=== PATIENT | female | born 1990 | race Caucasian/White ===

== ENCOUNTER 2022-07-15 21:04 | Emergency (ER) | payer OTHER, SELFPAY ==
[2022-07-15 21:25] VITALS: BP 146/74; PULSE 74; PULSE 80; RESP 18; TEMP 36.8; O2SAT 99; BMI 33.7
--- NOTE | 2022-07-15 21:37 | CRLHL7_ITS ---
For Patients: As a result of the Century Cures Act, medical imaging exams and procedure reports are released immediately into your electronic medical record. You may view this report before your referring provider. If you have questions, please contact your health care provider. INDICATION: Sledgehammer to lower tibia. TECHNIQUE: Right tibia and fibula, 2 views. COMPARISON: None. FINDINGS: No acute fracture identified. The knee and ankle appear normally aligned. There is mild soft tissue swelling in the anteromedial aspect of the distal calf. IMPRESSION: Mild soft tissue swelling in the distal calf. No fracture identified. Dictated by Angelika Hernandez MD @ 07/15/2022 10:18:48 PM (Electronically Signed)
[2022-07-15 22:06] VITALS: BP 124/70; PULSE 75; RESP 18; TEMP 37; O2SAT 99
[2022-07-15 22:46] VITALS: BP 124/70; PULSE 75; RESP 18; TEMP 37
--- NOTE | 2022-07-16 00:21 | ED.LOWEXIN ---
HPI - Extremity Injury (Lower) General Chief Complaint: Extremity Pain/Injury, Lower Stated Complaint: got hit by a sledgehammer - rght leg Time Seen by Provider: 07/15/22 21:26 History of Present Illness HPI Narrative: Right Rosales Injury/Pain pt. hit right rosales with 8lb sledgehammer. able to bear weight. 32-year-old young woman presenting to the emergency department complaint of right lower leg pain after striking a within 8 lb sledgehammer. She apparently was participating in a [employer] room busting a box up. Significant other saw how hard she swung it and reportedly said that otherwise what he sees would be less impressive. She has been able to walk but it is a burning throbbing pain. Has iced it. Related Data Home Medications Medication Instructions Recorded Confirmed No Known Home Medications 07/15/22 07/15/22 Allergies Allergy/AdvReac Type Severity Reaction Status Date / Time No Known Drug Allergies Allergy Verified 07/15/22 21:27 [facility] Medical History (Updated 07/15/22 @ 22:43 by Rene Menezes MD) No significant past medical history Surgical History (Updated 07/15/22 @ 22:05 by Carlos Nur RN) No significant past surgical history Social History Smoking Status: Never smoker Second hand tobacco smoke exposure: No How often do you have a drink containing alcohol: never How often do you have six or more drinks on one occasion: Never AUDIT-C Alcohol total score: 0 Non-prescribed substance use: denies use Exam Narrative: Exam Narrative: Pleasant. NAD. Has sandals on. Right foot without though. There is the medial right ankle tattoo. In the distal tibia there is mild swelling faint erythema and subtle point of bruising. Quite tender to direct palpation. Bony stressor on this area does not elicit more pain. Is breathing easily. Generally calm. Const: Vital Signs, click to edit/add: Vital Signs - 24 hr 07/15/22 21:25 07/15/22 21:25 07/15/22 22:06 Temperature 98.2 F 98.6 F Pulse Rate [Right Dorsalis Pedis] 74 Pulse Rate [Right Pulse Oximeter] 80 75 Respiratory Rate 18 18 Blood Pressure [Ri ght Upper Arm] 146/74 H 124/70 Pulse Oximetry 99 99 Oxygen Delivery Me thod Room Air Room Air 07/15/22 22:46 Temperature 98.6 F Pulse Rate [Right Dorsalis Pedis] Pulse Rate [Right Pulse Oximeter] 75 Respiratory Rate 18 Blood Pressure [Ri ght Upper Arm] 124/70 Pulse Oximetry Oxygen Delivery Me thod Documenting provider has reviewed patient's vital signs: yes Course Vital Signs Vital signs: Initial Vital Signs Temperature 98.2 F 07/15/22 21:25 Temperature Source Temporal Artery Scan 07/15/22 21:25 Pulse Rate 80 07/15/22 21:25 Respiratory Rate 18 07/15/22 21:25 Blood Pressure 146/74 H 07/15/22 21:25 Blood Pressure Mean 98 07/15/22 21:25 Blood Pressure Position Sitting 07/15/22 21:25 Pulse Oximetry 99 07/15/22 21:25 Oxygen Delivery Method Room Air 07/15/22 21:25 Vital Signs Temperature 98.2 F 07/15/22 21:25 Pulse Rate 80 07/15/22 21:25 Respiratory Rate 18 07/15/22 21:25 Blood Pressure 146/74 H 07/15/22 21:25 Pulse Oximetry 99 07/15/22 21:25 Oxygen Delivery Method Room Air 07/15/22 21:25 Temperature 98.6 F 07/15/22 22:46 Pulse Rate 75 07/15/22 22:46 Respiratory Rate 18 07/15/22 22:46 Blood Pressure 124/70 07/15/22 22:46 Pulse Oximetry 99 07/15/22 22:06 Oxygen Delivery Method Room Air 07/15/22 22:06 MDM - Extremity Injury (Lower) MDM Narrative Medical decision making narrative: I suspect more of hematoma/periosteal contusion. I discussed potentially waiting until tomorrow if still terrible or even the next day. Understandably since she is here and I can not absolutely say there is not a fracture she would like to proceed with imaging. X-ray was ordered. By my read there is soft tissue swelling but no bony abnormality. Dispensed Valdo wrap for comfort and icing. See patient discharge plan. Discharge Plan Discharge Clinical Impression: Contusion Patient Disposition: Home w/ Parent or Adult Condition: Stable Additional Instructions: There is not a lot a space for swelling to occur here and further, bone bruises hurt. I would keep icing 2-3 times daily over the next few days. If compression feels good, use it. Limit ambulation over the next couple of days. Elevate and ibuprofen for comfort. If simply not improved in a week to 10 days, consider follow-up for re-evaluation. Prescriptions: No Action No Known Home Medications Follow Up/Referrals: Peggy Brunson MD [Primary Care Provider] - Stand Alone Forms: [employer] Info Instructions
== END 2022-07-15 22:47 | disposition home or self-care (01) ==
PROVIDERS: Emergency Provider Family Medicine; PCP Family Medicine
DX: S80.11XA Contusion of right lower leg, initial encounter (principal); W27.8XXA Contact with other nonpowered hand tool, initial encounter
CPT/HCPCS: 73590; 99283

== ENCOUNTER 2024-07-30 18:35 | Emergency (ER) | payer OTHER, SELFPAY ==
--- OUTSIDE RECORDS SUMMARY | 2024-07-30 18:38 | XMS_ITS | Data Portability ---
Author Organization [place] [facility] [place] [facility] Address [address] [address] Care Team Providers Care Chaser Helper Name Role Phone CHIDI AGUDELO Primary Care Provider [phone] GLADYS DOMÍNGUEZ Referring Provider Assessment Encounter Date Assessment Date Assessment LastModified by Organization Details LastModified Time 12/07/2019 12/07/2019 Notes much bruxism with sleep. Motion remains very limited. Doing ex about 7 x/day (js 5x and td 2x) difficult to fit more in. PLAN: encourage hourly stretch NEXT visit. Assess response to scissors stretch. See in 2 weeks. [place] of [place]. [email or web address] Not available 12/07/2019 18:08:35 01/11/2020 01/11/2020 I reinforced the self-care strategies and encouraged compliance with those. Splint fit was reviewed and Adjustments were made to the splint to improve fit and occlusal comfort. I reviewed outcomes from the visits with PT, , . I recommended continued care with the physical therapist. Today 20 minutes were spent with the patient with greater than 50% of the visit spent in counseling and coordinating care. This included a review of the diagnosis, contributing factors, home self-management strategies and the limitations and expectations. .. Not available 01/11/2020 11:07:15 01/11/2020 01/11/2020 Overall improvements in Rom, little ex, but much more aware of self cares : doing TATU, B chew, not biting things off. Also using splint. PLAN: see DDS today. Follow up in 2-3 weeks or as DDS suggests. [email or web address] Not available 01/11/2020 10:32:37 02/07/2020 02/07/2020 I reinforced the self-care strategies and encouraged compliance with those. Splint fit was reviewed and No further adjustments were made to the splint to improve fit and occlusal comfort. I reviewed outcomes from the visits with PT, , . I recommended continued care with the physical therapist. Today 25 minutes were spent with the patient with greater than 50% of the visit spent in counseling and coordinating care. This included a review of the diagnosis, contributing factors, home self-management strategies and the limitations and expectations. .. Not available 02/07/2020 13:16:33 02/07/2020 02/07/2020 Improved IO. Bite feels off. PLAN: to DDS today. Will adjust PT /exercises pending occlusal check. [email or web address] Not available 02/07/2020 12:40:56 Plan of Treatment Reminders Order Date Submit Date Provider Last Modified By Organization Details Last Modified Time Details Appointments None record ed. Lab None record ed. Referral None record ed. Procedures None record ed. Surgeries None record ed. Imaging None record ed. Medication Orders None record ed. Patient TargetsNo targets recorded. Patient Instructions Encounter Date Encounter Id Patient Instructions Last Modified By Organization Details Last Modified Time 01/11/2020 [id number] 1. adjusted [place] FPS to contact with equal force on the posterior teeth bilaterally 2. follow up with PT in 2-3 weeks 3. 1/2 hr w/Dr. Porter in 2-3 weeks, if symptoms are stable and jaw AROM is normal put pt. on annual splint recalls. Not available 01/11/2020 11:08:45 02/07/2020 [id number] 1. checked [place] FPS: no adjustment needed. 2. checked bite with shimstock: posterior teeth contact with equal force bilaterally. Occlusion is normal today 3. follow up with PT as previously recommended to continue increasing jaw AROM to 40mm without pain routinely 4. 1/2 hr w/Dr. Porter in 1 year or earlier if pain flares, bite changes, or splint cracks. Not available 02/07/2020 13:19:25 Reason for Referral None Reported. Problems No Known Problems Procedures Surgical History Date Name Laterality Status Provider Name and Address Organization Details Recorded Time 02/07/20 25591: Therapeutic Exercise completed Rachael Panda, DARIEL [address] [facility] [address], [place], [address], [place] [facility] 02/07/2020 12:39:46 01/11/20 71970: Ultrasound (1:1) completed DARIEL Olvera [address], [place], [address], [place] [facility] 01/11/2020 10:31:36 01/11/20 39251: Therapeutic Exercise completed DARIEL Olvera [address], [place], [address], [place] [facility] 01/11/2020 10:30:28 12/07/19 [id number]: Ultrasound (1:1) completed DARIEL Olvera [address], [place], [address], [place] [facility] 12/07/2019 18:05:52 12/07/19 01483: Therapeutic Exercise completed DARIEL Olvera [address], [place], [address], [place] [facility] 12/07/2019 18:05:38 11/30/19 Oral appliance completed Yee Tamez [facility] 11/30/2019 17:07:11 11/28/19 96549: Ultrasound (1:1) completed DARIEL Olvera [address], [place], [address], [place] [facility] 11/28/2019 17:02:17 11/28/19 41407: Therapeutic Exercise completed DARIEL Olvera [address], [place], [address], [place] [facility] 11/28/2019 17:02:01 11/14/19 63987: Ultrasound (1:1) completed DARIEL Olvera [address], [place], [address] 11/14/2019 17:05:43 11/14/19 20 42103: Therapeutic Exercise completed Rachael Panda, PRASAD [address] [facility] [address], [place], [address], [facility] 11/14/2019 17:04:01 11/08/19 20 29348 PT Eval - Low Complexity completed Rachael Panda [facility] [address] [place] [address] [address], [place], [place], [address] [place] [address], [facility] 11/08/2019 15:10:18 11/08/19 20 25340: Self Care/Home Management Training completed Rachael Panda [facility] [address] [facility] [address], [place], [place], [address] [place] [address], [facility] 11/08/2019 16:10:24 11/08/19 51944: Neuromuscular Re-Education completed Rachael Panda [facility] [address] [place] [address] [address], [place], [address], [facility] 11/08/2019 16:10:19 extraction of wisdom tooth completed Elsa Arora [facility] 10/26/2019 15:07:40 Imaging Results None recorded. Procedure Notes None recorded. Medical Equipment None Reported. Allergies Allergen ID Allergen Name Allergen Category Reaction Reaction Severity Criticality Documentation Date Start Date Code Code System Note Provider Name and Address Organization Details Recorded Time 62235 nickel environme nt Not available Not available Not available 10/26/2019 [address]86 [address] [facility] 0 15:04:38 37845 acetamino phen / hydrocodo ne medicatio n Not available Not available Not available 10/26/2019 [address]73 [address] [facility] 0 15:04:44 Medications Name Sig Start Date Stop Date Status Note LastModified by Organization Details LastModified Time clonazepam 0.5 mg tablet Take 1 tablet as needed by oral route at bedtime . 01/10 completed Not Available Not Available Not Available methylprednis olone 4 mg tablets in a dose pack Take 1 dose pk by oral route as directvaleria d. 11/26 completed Not Available Not Available Not Available Vitals Date Recorded Body height Body mass index (BMI) Body weight Heart rate Body temperature Systolic blood pressure Diastolic blood pressure Provider Name and Address Organization Details Last Updated DateTime 0 170.18 cm 33.7 kg/m2 93178.3 6 g 66 /min 98.2 [degF] 131 mm[Hg] 83 mm[Hg] Yee Tamez [facility] 0 10:29:28 Date Recorded Body height Body mass index (BMI) Body weight Provider Name and Address Organization Details Last Updated DateTime 02/07/2020 170.18 cm 33.7 kg/m2 91629.36 g Elsa RODRIGUEZ [facility] 02/07/2020 12:27:51 Date Recorded Body temperature Heart rate Systolic blood pressure Diastolic blood pressure Provider Name and Address Organization Details Last Updated DateTime 02/07/2020 97.5 [degF] 58 /min 121 mm[Hg] 81 mm[Hg] Elsa Alonzo [facility] 02/07/2020 12:34:31 Social History Question Answer Notes LastModified by Organizat ion Details LastModified Time Tobacco Smoking Status [facility] 10/26/2019 15:05:59 Auto Related Injury? No Information not available 10/26/2019 What Is Your Level Of Caffeine Consumption? Moderate Information not available 10/26/2019 Currently No Information not available 10/26/2019 What Type Of Diet Are You Following? REGULAR Information not available 10/26/2019 Hobbies/Activi ties Kids Information not available 11/08/2019 Live Alone Or With Others? With Others Information not available 10/26/2019 Marital Status Informatio n not available 10/26/2019 Caffeine Use - How Much? 3 Cups 32 Oz?? Information not available 11/08/2019 How Many Children Do You Have? 2 3 And 4 Information not available 11/08/2019 General Stress Level Medium Information not available 10/26/2019 Work Related Injury? No Information not available 10/26/2019 Sex: Unknown Functional Status Question Answer Note LastModified by Organizat ion Details LastModified Time Do you use any illicit or recreational drugs? No Information not available 10/26/2019 What is your level of alcohol consumption? Occasional Information not available 10/26/2019 Are you currently employed? 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 Never used electronic cigarettes Information not available 11/08/2019 What is your exercise level? None Information not available 10/26/2019 Mental Status None recorded. Family History Relationship Description Onset Age of this Age Resolved Age Notes LastModified by Organization Details LastModified Time Father Heart disease Not available 2019 15:05:41 Father Rheumatoid arthritis Not available 2019 15:05:48 Medical History Condition Response Coronary Artery Disease N Other N Gout N Chronic fatigue syndrome N Hyperthyroidism N MRSA N Premenstrual syndrome (PMS) N Head Trauma/Injury N Emphysema N Irritable bowel syndrome N Hypothyroidism N Depression N COPD N Lung Disease N Glaucoma N Pneumonia N Pacemaker N Obstructive Sleep Apnea N Anxiety Disorder N Autoimmune disease N Muscle, Joint, or Bone Problems N Vision or Eye Problems N Arthritis N Serious Illness or Injuries N Acid Reflux (GERD) N Cancer N Stroke N Eating disorder N Neck Injury N Back Injury N High Cholesterol N History of chemotherapy N Neurologic Disorder N Liver Disease N Organ Transplant N Rheumatoid Arthritis N Headaches N Fibromyalgia N Kidney Disease N Allergies/Hayfever N Post traumatic stress disorder (PTSD) N Parkinson's Disease N Migraines N Brain Tumors N Anemia N Multiple Sclerosis N Immune System Disorder N Meningitis Y Pancreatic disease N Heart Attack ([place]) N Stomach Ulcers N Back pain N Diabetes N Bleeding Disorder N Seizures/Epilepsy N Sjogren's syndrome N Mental Health Concerns N Tuberculosis N AIDS/HIV N History of radiation therapy N Hyperlipidemia N Dementia N Asthma N Physical or sexual abuse N Substance Abuse N Peripheral Vascular Disease N Psoriasis N Reflux/GERD N Vertigo N Sleep Disorder N Aneurysm N Hepatitis N Heart Disease N Neuropathy N Pulmonary Embolism N Hypertension N Osteoporosis N Gynecological HistoryNo gynecological history recorded. 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 7796394977 9787994 M26.632 [id number] Rachael Panda[address] [address] 11/08/2019 14:57:43 11/08/2019 15:49:27 Pain of temporomandibular joint 04372272 M26.622 Articular disc disorder of temporomandibular joint 49688791 M26.632 Myofascial pain 32324834 9 M79.11 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 4976992808 6558072 M26.632 Limited op ening of mandible 706356545 M26.52 [id number] Rachael Panda[address] [address] 11/14/2019 15:47:47 11/14/2019 17:03:07 Pain of temporomandibular joint 68147966 M26.622 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 1866207124 7656225 M26.632 Articular disc disorder of temporomandibular joint 64772186 M26.632 Limited op ening of mandible 015807152 M26.52 [id number] Rachael Panda[address] [address] 11/28/2019 16:30:45 11/28/2019 17:03:23 Pain of temporomandibular joint 71033185 M26.622 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 3643878436 9854741 M26.632 Articular disc disorder of temporomandibular joint 78910824 M26.632 Limited op ening of mandible 559959937 M26.52 Myofascial pain 77193593 9 M79.11 [id number] Oxana Porter [address] [address] 11/30/2019 16:40:48 11/30/2019 17:18:02 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 5742344826 3443076 M26.632 Myofascial pain 49204912 9 M79.10 Limited op ening of mandible 848946204 M26.52 Pain of temporomandibular joint 97556662 M26.622 [id number] Rachael Panda[address] [address] 12/07/2019 16:07:45 12/07/2019 16:39:39 Articular disc disorder of temporomandibular joint 42030671 M26.632 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 9660568160 4022387 M26.632 Pain of temporomandibular joint 30378920 M26.622 [id number] Oxana Porter [address] [address] 01/11/2020 09:59:23 01/11/2020 10:58:38 Limited opening of mandible 727883525 M26.52 Myofascial pain 26114557 9 M79.10 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 7849042539 6656443 M26.632 Pain of temporomandibular joint 64092706 M26.622 [id number] Rachael Panda[address] [address] 01/11/2020 10:01:43 01/11/2020 10:37:10 Pain of temporomandibular joint 98118681 M26.622 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 2226816178 1046690 M26.632 Articular disc disorder of temporomandibular joint 22663178 M26.632 [id number] Oxana Porter, DDS [address],[address], [place] [address] 02/07/2020 12:00:27 02/07/2020 14:38:23 Myofascial pain 908957540 M79.10 Limited op ening of mandible 706611907 M26.52 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 8488254959 7653214 M26.632 Pain of temporomandibular joint 78160572 M26.622 [id number] Rachael Panda, [address] [place] [address] [facility],[address], [place] [address] 02/07/2020 12:12:40 02/07/2020 13:05:16 Pain of temporomandibular joint 39036745 M26.622 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 4082743445 1244526 M26.632 Articular disc disorder of temporomandibular joint 28219568 M26.632 Limited op ening of mandible 171643618 M26.52 Health Concerns Section Related Observation LastModified by Organization Detai ls LastModified Time None Recorded Concern Status LastModified by Organization Details LastModified Time None Recorded Advance Directives Directive None Recorded Payers Encounter Date Sequence Insurance Name Policy Number Policy Fisher Covered Member ID Fisher Member ID Guarantor Name 12/07/2019 1 [employer] () Glenn Fruit [id number] Devaughn Fruit 01/11/2020 1 [employer] () Glenn Fruit [id number] Devaughn Fruit 01/11/2020 1 [employer] () Glenn Fruit [id number] Devaughn Fruit 02/07/2020 1 [employer] () Glenn Fruit [id number] Devaughn Fruit 02/07/2020 1 [employer] () Glenn Fruit [id number] Devaughn Ortega Notes Date Note Type Note Provider Name and Address Organization Details Recorded Time 01/11/2020 text/html general HPI for jaw, face, TMD painReported bypatient.Onset:st arted 1 month(s) ago Location:left Quality:aching; burning Severity:pain level 0/10 Durationconstant Symptom triggers:clenching Aggravating Factors:clenching the teeth Alleviating Factors:none Associated Symptoms:jaw locks open right Prior Tests:panorex Prior Treatment:muscle relaxant; night shift manager/oral appliance/splint; heat/ice Prior opiniondentistNote s:01/11/2020: L jaw and TMJ pain, 4/10, minimal dull ache lasting a few minutes; aggravated by jaw stretching pt. not taking pain medspt wears FPS nightly, it fits well jaw AROM 37 today in PT without pain pt. states improvement occurred because she has increased awareness of oral habits 11/30/2019: L jaw and TMJ pain, 4/10, intermittent dull ache; aggravated by jaw stretching pt. took Klonopin several tabs + Medrol Dose Pack but jaw still feels locked pt. states her jaw unlocked for ~1/2 hr. 1 month ago and unlocked for a brief time prior to that as well 10/26/2019: L jaw and TMJ pain, 6-7/10, constant dull to strong ache; aggravated by L TMJ closed jaw lock, tooth clenching L TMJ clicking, intermittent clicking until pt's R TMJ locked closed 10/01/2019.L TMJ clicking has been present for a few years.Pt. has worn a soft dental mouthguard for years L limited jaw opening, pt. reports her jaw has been locked closed continuously since 10/01/2019pt. reports a past history of R TMJ closed jaw locking ~1 time/month for the last 2-3 years on waking, typically pt. was able to unlock the R TMJ by massaging her jaw Patient presents today for follow-up. They report jaw symptoms which are {{improved* worsen ed unchanged resol christofer}} since the previous visit. Symptoms and pertinent information along with prior data was reviewed, updated and documented in the patient history of present illness. Patient rates the pain intensity as {{0* 1 2 3 4 5 6 7 8 9 10}} on a scale of 0 to 10. Patient is {{engaged in* not engaged in partially engaged in completed disco ntinued}} active treatment at this time. Oxana Porter, DDS [address], [place], [address], [place] 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 states this almost feels normal pt. wears [place] FPS nightly, it fits well, no adjustment needed 01/11/2020: L jaw and TMJ pain, 4/10, minimal dull ache lasting a few minutes; aggravated by jaw stretching pt. not taking pain medspt wears FPS nightly, it fits well jaw AROM 37 today in PT without pain pt. states improvement occurred because she has increased awareness of oral habits 11/30/2019: L jaw and TMJ pain, 4/10, intermittent dull ache; aggravated by jaw stretching pt. took Klonopin several tabs + Medrol Dose Pack but jaw still feels locked pt. states her jaw unlocked for ~1/2 hr. 1 month ago and unlocked for a brief time prior to that as well 10/26/2019: L jaw and TMJ pain, 6-7/10, constant dull to strong ache; aggravated by L TMJ closed jaw lock, tooth clenching L TMJ clicking, intermittent clicking until pt's R TMJ locked closed 10/01/2019.L TMJ clicking has been present for a few years.Pt. has worn a soft dental mouthguard for years L limited jaw opening, pt. reports her jaw has been locked closed continuously since 10/01/2019pt. reports a past history of R TMJ closed jaw locking ~1 time/month for the last 2-3 years on waking, typically pt. was able to unlock the R TMJ by massaging her jaw Patient presents today for follow-up. They report jaw symptoms which are {{improved* worsen ed unchanged resol christofer}} since the previous visit. Symptoms and pertinent information along with prior data was reviewed, updated and documented in the patient history of present illness. Patient rates the pain intensity as {{0* 1 2 3 4 5 6 7 8 9 10}} on a scale of 0 to 10. Patient is {{engaged in* not engaged in partially engaged in completed disco ntinued}} active treatment at this time. Oxana Porter, DDS [address], [place], [address], [facility] 02/07/2020 13:19:54 OBGyn Episode No OBEpisode recorded.
--- OUTSIDE RECORDS SUMMARY | 2024-07-30 18:38 | XMS_ITS | Clinical Summary ---
Author Organization [facility] [employer] [facility] Address [address] [place] [address] Care Team Providers Care Box Sealing Inspector Name Role Phone Peggy Brunson MD Primary Care Provider Allergies Active Allergy Reactions Criticality Noted Date Comments Hydrocodone-Acetaminophen Nausea And Vomiting 0 12/06/2015 Hydrocodone-Guaifenesin Nausea And Vomiting 02/2014 Morphine Rash 07/10/2021 Nickel Itching,Rash 1989 Medications dextroamphetamine- amphetamine (Adderall XR) 25 mg Extended-Release capsuleIndications :ADHD (attention deficit hyperactivity disorder) evaluation Take 1 Capsule (25 mg) by mouth once daily. 30 Capsule 5 Active dextroamphetamine- amphetamine (Adderall XR) 25 mg Extended-Release capsuleIndications :ADHD (attention deficit hyperactivity disorder) evaluation Take 1 Capsule (25 mg) by mouth once daily. 30 Capsule 5 07/23/19 25 Active Problems Problem Noted Date Diagnosed Date ADHD (attention deficit hyperactivity disorder) evaluation 11/23/2023 Encounters Date Type Department Care Team Description 05/23/2024 8:[address] [facility] [place] [address] [place] [address] Peggy Brunson MD Medication Management (Adderall XR); Telehealth 05/22/2024 Travel from Last 3 Months Immunizations Immunization Administration Dates Next Due COVID-19 VACCINE SPIKEVAX (M ODERNA 50MCG/0.5ML) 12YO+ PFS 11/23/2023 INFLUENZA, IIV3 PF (AGE >= 6 MO) 11/23/2023 Influenza, IIV4 11/23/2022 Tdap 11/23/2023 Family History Medical History Relation Name Comments Coronary artery disease Father Stroke Father Lung cancer Maternal Grandfather Hypertension Mother Hypothyroidism Mother Cancer Paternal Grandfather Cancer-breast Paternal Grandmother Anemia Sister 1 [place] No Known Problems Sister 2 Ramírez No Known Problems Sister 3 [place] Relation Name Status Comments Daughter Florain Alive Father Maternal Grandfather Maternal Grandmother Mother Alive Paternal Grandfather Paternal Grandmother Sister 1 [place] Alive Sister 2 Ramírez Alive Sister 3 [place] Alive Son Sandoval Alive Social History Tobacco Use Types Packs/Day Years Used Date Smoking Tobacco: Never Smokeless Tobacco: Never Tobacco Cessation:Counseling Given: Yes Alcohol Use Standard Drinks/Week Comments Yes 0 (1 standard drink = 0.6 oz pure alcohol) Twice a year; 1 drink at a time PHQ-2 Answer Date Recorded PHQ-2 TOTAL SCORE 0 01/04/2023 Social Connections Answer Date Recorded Do you often feel lonely or isolated from those around you? 0 05/25/2023 Financial Resource Strain Answer Date R ecorded Difficulty of Paying Living Expenses 3 05/25/2023 Difficulty of Paying Living Expenses Not on file 05/25/2023 Food Insecurity Answer Date Recorded Do you worry your food will run out before you are able to buy more? 1 05/25/2023 Transportation Needs Answer Date Record ed Does lack of transportation keep you from medica l appointments? 1 05/25/2023 Does lack of transportation keep you from work, meetings or getting things that you need? 1 05/25/2023 Housing Stability Answer Date Recorded What is your housing situation today? 1 05/25/2023 Utilities Answer Date Recorded Do you have trouble paying f or utilities (for example, heat, electricity, water, phone)? 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 Not on file Not on file Not on file Obstetrics History Para Term AB IAB SAB Ectopic Multiple Livin g Live Births 3 2 2 1 1 2 2 Date Outcome GA Total Labor Labor/2nd/3rd Weight Sex Type Anes PTL Nohemi A1 A5 Name Clin 2013 SAB 02/07 Term F Vag Living Florian 02/20 Term M Vag Living Sandoval Last Filed Vital Signs Vital Sign Reading Time Taken Comments Blood Pressure 128/80 12/28/2023 8:41 AM CDT Pulse 64 12/28/2023 8:41 AM CDT Temperature 36.6 C (97.9 F) 10/12/2023 9:39 AM CDT Respiratory Rate 16 03/19/2022 8:37 AM HANDKERCHIEF CUTTER Oxygen Saturation 98% 12/28/2023 8:41 AM CDT Inhaled Oxygen Concentration - - Weight 102.8 kg (226 lb 9.6 oz) 12/28/2023 8:41 AM CDT Height 170.5 cm (5' 7.13) 11/23/2023 9:08 AM CD T Body Mass Index 35.36 11/23/2023 9:08 AM CDT Plan of Treatment Upcoming Encounters Date Type Department Care Team (Late st Contact Info) Description 08/14/2024 7:[address] [facility] [place] [address] [place] [address] [place] [address] [place] [address] Health Maintenance Due Date Last Done Comments Hepatitis B series for 19+ (1 of 3 - 19+ 3-dose series) 02/20/2008 Depression screening for age 12+ 01/05/2024 01/04/2023, 12/21/2022, 12/10/2022, Additional history exists BMI (ht and wt on same day) for age 18+ 11/22/2024 11/23/2023, 05/25/2023, 11/23/2022, Additional history exists Pap test for age 21-65 07/10/2026 2 (Verified in Care Everywhere or Patient Record) Tetanus booster 11/22/2033 11/23/2023 COVID-19 vaccine series Completed 11/23/19 24, 03/07/2021, 07/31/2020, Additional history exists HIV for age 15-65 Addressed 11/23/2023 (Ve rified in Care Everywhere or Patient Record), 11/23/2023 Overridden with the intention of not completing the topic Hepatitis C screening for age 18-79 Completed 11/23/2023 Influenza Vaccine Completed 11/23/2023, 11/23/2022 Tdap Completed 11/23/2023 Pneumococcal series for age 6-49 Aged Out No longer eligible b ased on patient's age to complete this topic Procedures Procedure Name Priority Date/Time Associated Diagnosis Comments HIV 1/2 ANTIGEN/ANTIBODY FOURTH GENERATION W/RFL (QUEST) Routine 11/23/2023 4:09 PM CDT Encounter for screening for HIV ANTI HCV Routine 11/23/2023 4:09 PM CDT Need for hepatitis C screening test from Last 3 Months or Most Recently Relevant to Health Maintenance Results * HIV 1/2 ANTIGEN/ANTIBODY FOURTH GENERATION W/RFL (QUEST) (11/23/2023 4:09 PM CDT) [facility] HIV AG/AB, 4TH GEN NON-REACT SARAHI NON-REACT SARAHI [employer] [facility] Comment: HIV-1 antigen and HIV-1/HIV-2 antibodies were not detected. There is no laboratory evidence of HIV infection. PLEASE NOTE: This information has been disclosed to you from records whose confidentiality may be protected by state law. If your state requires such protection, then the state law prohibits you from making any further disclosure of the information without the specific written consent of the person to whom it pertains, or as otherwise permitted by law. A general authorization for the release of medical or other information is NOT sufficient for this purpose. For additional information please refer to http://education.[employer].V2contact/faq/HRA837 (This link is being provided for informational/ educational purposes only.) The performance of this assay has not been clinically validated in patients less than 2 years old. Blood BLOOD SPECIMEN / Unknown 11/23/2023 4:09 PM CDT 11/23/2023 4:18 PM CDT Peggy Brunson MD SEND OUTS Final R esult Performing Organization Address [facility] Co de Phone Number [employer] [facility] [address] [place] [address], [place] [phone] [facility] [address] [place] [address] * ANTI HCV (11/23/2023 4:09 PM CDT) HEPATITIS C ANTIBODY NON-REACTI VE NON-REACT SARAHI [employer] Comment: HCV antibody was non-reactive. There is no laboratory evidence of HCV infection. In most cases, no further action is required. However, if recent HCV exposure is suspected, a test for HCV RNA (test code 75968) is suggested. For additional information please refer to http://education.[employer]/faq/RGM74x8 (This link is being provided for informational/ educational purposes only.) Blood BLOOD SPECIMEN / Unknown 11/23/2023 4:09 PM CDT 11/23/2023 4:18 PM CDT Peggy Brunson MD SEND OUTS Final R [employer] Performing Organization Address [facility] Co de Phone Number [employer] [facility] [address] [place] [address], [place] [phone] [facility] [address] [place] [address] from Last 3 Months or Most Recently Relevant to Health Maintenance Insurance [facility] Care Teams Box Sealing Inspector Relationship Specialty [place] [address] [place] [address] PCP - General Family Practice 11/23/23
--- OUTSIDE RECORDS SUMMARY | 2024-07-30 18:38 | XMS_ITS | Clinical Summary ---
[facility] Organization [facility] Address [address] [place] [address] Care Team Providers Care Grain Elevator Motor Starter Name Role Phone Eulalio Dickinson MD Primary Care Provider [phone] Source Comments You are receiving this document as you are listed as the primary care provider,follow-up provider, or the patient has been referred to you for consultation.This is in compliance with the Medicare and[facility] EHR Incentive Program,which states Providers who transition their patient to another setting of careor provider of care or refers their patient to another provider of care shouldprovide summary care record for each transition of care or referral. [employer] Allergies Active Allergy Reactions Criticality Noted Date Comments Morphine And Codeine Rash 07/10/2021 Nickel Itching,Rash 1989 Medications chlorhexidine gluconate (PERIDEX) 0.12 % solution Take by mouth. 2 Active levonorgestrel (MIRENA) 20 MCG/DAY IUDIndications: Contraceptive Therapy 1 Each by Intrauterine route once. Placed 05/25/2016 in [place] clinic Indications: Control Treatment Active amphetamine-dex troamphetamine XR (ADDERALL XR) 25 MG 24 hour release capsule Take 1 Capsule (25 mg) by mouth. 3 Active Active Problems Problem Noted Date Diagnosed Date Family history of hypertrophic cardiomyopathy Immunizations Immunization Administration Dates Next Due Pfizer Monovalent 12+ Purple Top 03/07/2021,07/07,06/29/2020 Social History Tobacco Use Types Packs/Day Years Used Date Smoking Tobacco: Never Smokeless Tobacco: Never Tobacco Cessation:Counseling Given: No Alcohol Use Standard Drinks/Week Comments Not Currently 0 (1 standard drink = 0.6 oz pur e alcohol) Very occasional AUDIT-C Answer Date Recorded Q1: How often do you have a drink containing alc ohol? 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 Not on file Not on file Last Filed Vital Signs Vital Sign Reading Time Taken Comments Blood Pressure 127/76 08/20/2023 3:12 PM CDT Pulse 84 08/20/2023 3:12 PM CDT Temperature 36.1 C (97 F) 04/26/2020 9:33 AM TRAVEL AGENCY MANAGER Respiratory Rate - - Oxygen Saturation 99% 04/26/2020 9:33 AM TRAVEL AGENCY MANAGER Inhaled Oxygen Concentration - - Weight 99.3 kg (219 lb) 08/20/2023 3:12 PM CDT Height 168.9 cm (5' 6.5) 08/20/2023 3:12 PM CDT Body Mass Index 34.82 08/20/2023 3:12 PM CDT Plan of Treatment Health Maintenance Due Date Last Done Comments Hep C Screening (Preventive Services) 1989 HIV Screening (Preventive Services) 2005 DTaP/Tdap/Td Vaccine (1 - Tdap) 02/20/2008 HepB Vaccine (1) 02/20/2008 Diabetes Screening- (based o n age and BMI) 04/26/2023 04/26/2020 Adult Preventive Visit 07/11/2023 , 04/26/2020 COVID-19 Vaccine ( - 2023-2 5 season) 2023 03/07/2021, 07/31/2020, 06/29/2020 Influenza Vaccine (Season Ended) 2024 11/23/2022 Cervical Cancer Screening 07/10/20262021, 07/10/2021 Zoster/Shingles Vaccine (1 o f 2) 2039 HPV Vaccine Aged Out No longer eligi ble based on patient's age to complete this topic HepA Vaccine Aged Out No longer eligi ble based on patient's age to complete this topic Hib Vaccine Aged Out No longer eligi ble based on patient's age to complete this topic IPV (Polio) Vaccine Aged Out No longe r eligible based on patient's age to complete this topic MCV4 Vaccine Aged Out No longer eligi ble based on patient's age to complete this topic Meningococcal B Vaccine Aged Out No l onger eligible based on patient's age to complete this topic Pneumococcal Vaccine Aged Out No long er eligible based on patient's age to complete this topic Procedures Procedure Name Priority Date/Time Associated Diagnosis Comments HPV WITH 16 18 GENOTYPING, CERVICAL/ENDOCERVI SAILAJA Routine 07/10/2021 11:49 AM CDT Special screening examination for human papillomavirus (HPV) HGB A1C Routine 04/26/2020 10:08 AM TRAVEL AGENCY MANAGER Screening for diabetes mellitus from Last 3 Months or Most Recently Relevant to Health Maintenance Results * HPV with 16 18 Genotyping (07/10/2021 11:49 AM CDT) HPV High Risk Type 16 PCR Not Detected Not detected 07/16/2021 12:04 PM CDT [facility] HPV High Risk Type 18 PCR Not Detected Not Detected 07/16/2021 12:04 PM T [facility] HPV High Risk Other Than 16/18 Not Detected Not detected 07/16/2021 12:04 PM T [facility] Cervical Broom ENTIRE ENDOCERVIX / Unknown 07/10/2021 11:49 AM CDT 07/10/2021 1:51 PM CDT [facility] - 07/16/2021 12:04 PM CDT The Aidee HPV test is a qualitative in vitro test for the detection of Human Papillomavirus in [facility] patient specimens. The test utilizes amplification of target DNA by Polymerase Chain Reaction (PCR) and nucleic acid hybridization for the detection of 14 high-risk (HR) HPV types. The assay tests for high risk types (16, 18, 31, 33, 35, 39, 45, 51, 52, 56, 58, 59, 66, and 68). us Kirsten Saha MD LAB_1 Final Result [address] [phone] * Hgb A1C (04/26/2020 10:08 AM TRAVEL AGENCY MANAGER) Hemoglobin A1C 4.7 <=5.6 % 04/26/2020 6:03 PM TRAVEL AGENCY MANAGER [facility] Blood Venipuncture / Unknown 04/26/2020 10:08 AM TRAVEL AGENCY MANAGER 04/26/2020 10:08 AM TRAVEL AGENCY MANAGER us Odilia Hudson MD LAB_1 Final Result Performing Organization Address City/[facility]/ZIP Co de Phone Number [facility] [address] [phone] from Last 3 Months or Most Recently Relevant to Health Maintenance Insurance [facility] Care Teams Grain Elevator Motor Starter Relationship Specialty Start [place] [address] [place] [address] PCP - General 12/11/21
--- OUTSIDE RECORDS SUMMARY | 2024-07-30 18:38 | XMS_ITS | Clinical Summary ---
Author Organization [facility] Address [address] [place] [address] Care Team Providers Care Silver Plater Name Role Phone Unavailable Primary Care Provider Unavailabl e Allergies No known active allergies Medications No known medications Social History Tobacco Use Types Packs/Day Years Used Date Smoking Tobacco: Never Assessed Adolescent Education Answer Date Record ed Getting School Help Needed Not on file 11/28 Comments Unknown Sex and Gender Information Value Date Recorded Sex Assigned at Not on file Legal Sex Female 3:50 PM CDT Gender Identity Not on file Sexual Orientation Not on file Last Filed Vital Signs Vital Sign Reading Time Taken Comments Blood Pressure 119/83 07/20/2020 3:58 PM CDT Pulse 90 07/20/2020 4:20 PM CDT Temperature 36.8 C (98.3 F) 07/20/2020 3:58 PM CDT Respiratory Rate 16 07/20/2020 3:58 PM CDT Oxygen Saturation 97% 07/20/2020 3:58 PM CDT Inhaled Oxygen Concentration - - Weight 103.4 kg (228 lb) 07/20/2020 3:58 PM CDT Height 170.2 cm (5' 7) 07/20/2020 3:58 PM CDT Body Mass Index 35.71 07/20/2020 3:58 PM CDT Plan of Treatment Not on file
[2024-07-30 18:40] VITALS: BP 145/95; PULSE 94; RESP 20; TEMP 36.8; O2SAT 100; BMI 35.2
--- NOTE | 2024-07-30 19:04 | ED_ITS ---
HPI - Chest Pain General Chief Complaint: Chest Pain Stated Complaint: Chest pain Time Seen by Provider: 07/30/24 18:39 History of Present Illness HPI narrative: This 34-year-old female comes in reporting some upper midsternal chest discomfort that came on about 9 hours prior to arrival. She states that she was sitting and doing nothing when she started to feel this discomfort which is more like pressure and tired feeling associated with that. She took a nap and awoke with the same symptoms. She did not have any nausea, vomiting, lightheadedness, shortness of breath, or diaphoresis. She does not report any exercise intolerance. She does not have any risk factors except for she reports a family history of her father who had from a stroke at age 52. She states that he also had hypertrophic cardiomyopathy. She did have an echocardiogram about 4 years ago and her heart appeared normal in every way. She was encouraged to follow up after 5 years in for repeat echocardiogram. Related Data Home Medications ?Medication ?Instructions ?Recorded ?Confirmed dextroamphetamine-amphetamine ER 1 cap PO DAILY 07/30/24 25 mg 24hr capsule,extend release Allergies Allergy/AdvReac Type Severity Reaction Status Date / Time hydrocodone AdvReac Intermediate Nausea Verified 07/30/24 18:46 nickel AdvReac Intermediate Rash Verified 07/30/24 18:46 Review of Systems Status of ROS Reports: 10 or more systems reviewed and unremarkable except as noted in History and below Narrative Constitutional: No fevers, no weight gain or loss. Eyes: No discharge. No vision changes. HENT: No congestion, no sore throat, no ear pain. Cardiovascular: No palpitations. Respiratory: No shortness of breath, no wheezes, no cough. Gastrointestinal: No abdominal pain, no vomiting, no diarrhea. Genitourinary: No dysuria, no hematuria. Musculoskeletal: Normal range of motion. Skin: No rashes, no pruritis. Neurological: No dizziness, weakness, sensory change, speech change. Endo/Heme/Allergies: No bruising or bleeding. No polydipsia. Pysch: no suicidality, no anxiety, no insomnia. All other systems reviewed and are negative. [facility] Medical History (Updated 07/30/24 @ 19:09 by Richard Schaefer MD) No significant past medical history Surgical History (Updated 07/15/22 @ 22:05 by Carlos Nur RN) No significant past surgical history Social History Smoking Status: Never smoker Second hand tobacco smoke exposure: No How often do you have a drink containing alcohol: never How often do you have six or more drinks on one occasion: Never AUDIT-C Alcohol total score: 0 Non-prescribed substance use: denies use Exam Narrative Exam Narrative: Constitutional: Well-developed, well-nourished, no acute distress. HEENT: Normocephalic, atraumatic. Neck: Normal range of motion. Nontender. Supple. Heart: Regular. No murmurs. Normal rate. Intact distal pulses. Lungs: Clear to auscultation. No wheezes, rhonchi, or rales. Chest: Discomfort in the upper aspect of her sternum that she reports as a he aviness or pressure. Abdomen: Normal bowel sounds. Nontender. No rebound tenderness. Genitalia: Deferred. Back: No midline tenderness. Normal range of motion. Extremities: Normal range of motion. No injury. Skin: Intact. No rash. Warm. No erythema or pallor. Neurologic: No altered sensation. No weakness. Alert and oriented. Psychiatric: No suicidality. No anxiety or depression. No insomnia. Nursing notes and vitals signs are reviewed. Const Vital Signs, click to edit/add: Vital Signs - 24 hr 07/30/24 18:40 Temperature 98.3 F Pulse Rate [Pulse Oximeter] 94 Respiratory Rate 20 Blood Pressure [Right Upper Arm] 145/95 H Pulse Oximetry 100 Oxygen Delivery Method Room Air Course Vital Signs Vital signs: Initial Vital Signs Temperature 98.3 F 07/30/24 18:40 Temperature Source Temporal Artery Scan 07/30/24 18:40 Pulse Rate 94 07/30/24 18:40 Pulse Rhythm Regular 07/30/24 18:40 Respiratory Rate 20 07/30/24 18:40 Blood Pressure 145/95 H 07/30/24 18:40 Blood Pressure Mean 111 H 07/30/24 18:40 Blood Pressure Position Sitting 07/30/24 18:40 Pulse Oximetry 100 07/30/24 18:40 Oxygen Delivery Method Room Air 07/30/24 18:40 Vital Signs Temperature 98.3 F 07/30/24 18:40 Pulse Rate 94 07/30/24 18:40 Respiratory Rate 20 07/30/24 18:40 Blood Pressure 145/95 H 07/30/24 18:40 Pulse Oximetry 100 07/30/24 18:40 Oxygen Delivery Method Room Air 07/30/24 18:40 Temperature 98.3 F 07/30/24 18:40 Pulse Rate 94 07/30/24 18:40 Respiratory Rate 20 07/30/24 18:40 Blood Pressure 145/95 H 07/30/24 18:40 Pulse Oximetry 100 07/30/24 18:40 Oxygen Delivery Method Room Air 07/30/24 18:40 MDM - Chest Pain MDM Narrative Medical decision making narrative: This patient comes in reporting chest discomfort as described above. She states that the symptoms are constant over these past 9 hours or so. She does not have any other associated symptoms. She does not report any recent injury event or strenuous activity and states that she has good exercise tolerance. An EKG is obtained which shows normal sinus rhythm which is borderline tachycardia. There are no ST or T-wave abnormalities. I did discuss lab and imaging options which the patient declined in a process of shared decision making. She feels sufficiently reassured with EKG and the discussion had regarding various causes of chest pain. ECG Data Attestation: I personally reviewed and interpreted this ECG as follows: Interpretation: Normal sinus rhythm. Rate is 103 beats per minute. There are no ST or T-wave abnormalities. Discharge Plan Discharge Clinical Impression: Atypical chest pain Patient Disposition: Home, Self-Care Condition: Stable Additional Instructions: Continue current plans. Activity as tolerated. Follow up with MD return if symptoms are worsening. Prescriptions: No Action dextroamphetamine-amphetamine 25 mg capsule,extended release 24hr 1 cap PO DAILY Follow Up/Referrals: Peggy Brunson MD [Primary Care Provider, Family Practice] Stand Alone Forms: relocalityth Info Instructions
[2024-07-30 19:14] VITALS: BP 145/95; PULSE 94; RESP 20; TEMP 36.8; O2SAT 100
[2024-07-30 19:15] VITALS: BP 145/95; PULSE 94; RESP 20; TEMP 36.8
== END 2024-07-30 19:15 | disposition home or self-care (01) ==
PROVIDERS: Emergency Provider Emergency Medicine Emergency Medical Services; PCP Family Medicine
DX: R07.89 Other chest pain (principal)
CPT/HCPCS: 93005; 99284

== ENCOUNTER 2024-10-26 22:43 | Emergency (ER) | payer OTHER, SELFPAY ==
--- OUTSIDE RECORDS SUMMARY | 2024-10-26 22:46 | XMS_ITS | Clinical Summary ---
[facility] Address [address] [place] [address] Care Team Providers Care Cops Name Role Phone Eulalio Dickinson MD Primary Care Provider [phone] Source Comments You are receiving this document as you are listed as the primary care provider,follow-up provider, or the patient has been referred to you for consultation.This is in compliance with the Medicare and[facility] E[facility] Incentive Program,which states Providers who transition their patient to another setting of careor provider of care or refers their patient to another provider of care shouldprovide summary care record for each transition of care or referral. Narrative Allergies Active Allergy Reactions Criticality Noted Date Comments Morphine And Codeine Rash 07/10/2021 Nickel Itching,Rash 1989 Medications chlorhexidine gluconate (PERIDEX) 0.12 % solution Take by mouth. 2 Active levonorgestrel (MIRENA) 20 MCG/DAY IUDIndications: Contraceptive Therapy 1 Each by Intrauterine route once. 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 Inhaled Oxygen Concentration - - Weight 99.3 kg (219 lb) 08/20/2023 3:12 PM CDT Height 168.9 cm (5' 6.5) 08/20/2023 3:12 PM CDT Body Mass Index 34.82 08/20/2023 3:12 PM CDT Plan of Treatment Health Maintenance Due Date Last Done Comments Hep C Screening (Preventive Services) 1989 HIV Screening (Preventive Services) 2005 DTaP/Tdap/Td Vaccine (1 - Tdap) 02/20/2008 HepB Vaccine (1) 02/20/2008 HPV Vaccine (1 - 3-dose SCDM series) 02/20/2016 Adult Preventive Visit 07/11/2023 , 04/26/2020 COVID-19 Vaccine (4 - 2023-2 5 season) 2023 03/07/2021, 07/31/2020, 06/29/2020 Influenza Vaccine (#1) 2024 11/23/2022 Cervical Cancer Screening 07/10/20262021, 07/10/2021 Zoster/Shingles Vaccine (1 o f 2) 2039 HepA Vaccine Aged Out No longer eligi [...] Special screening examination for human papillomavirus (HPV) from Last 3 Months or Most Recently Relevant to Health Maintenance Results * HPV with 16 18 Genotyping (07/10/2021 11:49 AM CDT) HPV High Risk Type 16 PCR Not Detected Not detected 07/16/2021 12:04 PM T [facility] HPV High Risk Type 18 PCR Not Detected Not Detected 07/16/2021 12:04 PM [facility] HPV High Risk Other Than 16/18 Not Detected Not detected 07/16/2021 12:04 PM [facility] Cervical Broom ENTIRE ENDOCERVIX / Unknown 07/10/2021 11:49 AM CDT 07/10/2021 1:51 PM CDT [facility] - 07/16/2021 12:04 PM CDT [facility] [...] us Kirsten Saha MD [email or web address] Final Result [id number] [place] [address] from Last 3 Months or Most Recently Relevant to Health Maintenance Insurance [facility] Care Teams Cops Relationship Specialty Start [place] [id number] [place] [address] PCP - General 12/11/21
--- OUTSIDE RECORDS SUMMARY | 2024-10-26 22:46 | XMS_ITS | Clinical Summary ---
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 30 Capsule 5 Active Active Problems Problem Noted Date Diagnosed Date ADHD (attention deficit hyperactivity disorder) evaluation 11/23/2023 Encounters Date Type Department Care Team Description 10/13/2024 4:30 PM CDT Office Visit [facility] [id number] [place] [address] Shaheen Kennedy MD Consult (New patient consult / Chest pressure, Family history of hypertrophic cardiomyopathy / Referred by Dr Linnette Elizabeth) 10/13/2024 Travel 10/08/2024 Travel 08/15/2024 7:30 AM CDT - 08/15/2024 11:59 PM CDT Hospital Encounter [facility] [address] [place] [address] Linnette Elizabeth MD Chest pressure 08/15/2024 Travel 08/14/2024 7:40 AM CDT Telemedicine [facility] [place] [address] [place] [address] Linnette Elizabeth MD Medication Management (Adderall XR); Telehealth 08/14/2024 Telephone [facility] [place] [address] [place] [address] Linnette Elizabeth MD e-prescribing Error 08/11/2024 Travel 08/03/2024 8:40 AM CDT Office Visit [facility] [place] [address] [place] [address] Linnette Elizabeth MD Hospital F/U (Episode of Heaviness in chest, tingling in hands and fatigue ) 08/03/2024 Travel from Last 3 Months Immunizations Immunization Administration Dates Next Due COVID-19 VACCINE SPIKEVAX (M ODERNA 50MCG/0.5ML) 12YO+ PFS 11/23/2023 INFLUENZA, IIV3 PF (AGE >= 6 MO) 11/23/2023 Influenza, IIV4 11/23/2022 Tdap 11/23/2023 Family History Medical History Relation Name Comments Atrial fibrillation Father Coronary artery disease Father Stroke Father Lung cancer Maternal Grandfather Hypertension Mother Hypothyroidism Mother Cancer Paternal Grandfather Cancer-breast Paternal Grandmother Anemia Sister 1 [place] No Known Problems Sister 2 Ramírez No Known Problems Sister 3 [place] Relation Name Status Comments Daughter Florian Alive Father Maternal Grandfather Maternal Grandmother Mother [...] or isolated from those around you? 0 08/03/2024 Financial Resource Strain Answer Date R ecorded Difficulty of Paying Living Expenses 3 08/03/2024 Difficulty of Paying Living Expenses Not on file 08/03/2024 Food Insecurity Answer Date Recorded Do you worry your food will run out before you are able to buy more? 1 08/03/2024 Transportation Needs Answer Date Record ed Does lack of transportation keep you from medica l appointments? 1 08/03/2024 Does lack of transportation keep you from work, meetings or getting things that you need? 1 08/03/2024 Housing Stability Answer Date Recorded What is your housing situation today? 1 08/03/2024 Utilities Answer Date Recorded Do you have trouble paying f or utilities (for example, heat, electricity, water, phone)? 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 Not on file Not on file Obstetrics History Para Term AB IAB SAB Ectopic Multiple Livin g Live Births 3 2 2 1 1 2 2 Date Outcome GA Total Labor Labor/2nd/3rd Weight Sex Type Anes PTL Nohemi A1 A5 Name Clin 2013 SAB 02/07 Term F Vag Living [facility] 02/20 Term M Vag Living [place] Last Filed Vital Signs Vital Sign Reading Time Taken Comments Blood Pressure 136/86 10/13/2024 1:18 PM CDT Pulse 68 10/13/2024 1:18 PM CDT Temperature 36.6 C (97.9 F) 10/12/2023 9:39 AM CDT Respiratory Rate 16 10/13/2024 1:18 PM CDT Oxygen Saturation 98% 10/13/2024 1:18 PM CDT Inhaled Oxygen Concentration - - Weight 103.9 kg (229 lb) 10/13/2024 1:18 PM CDT Height 170.2 cm (5' 7) 10/13/2024 1:18 PM CDT Body Mass Index 35.87 10/13/2024 1:18 PM CDT Plan of Treatment Upcoming Encounters Date Type Department Care Team (Late st Contact Info) Description 11/16/2024 7:40 AM CDT Office Visit [facility] [place] [address] [place] [address] [place] [address] [place] [address] Health Maintenance Due Date Last Done Comments Hepatitis B series for 19+ (1 of 3 - 19+ 3-dose series) 02/20/2008 Depression screening for age 12+ 01/05/2024 01/04/2023, 12/21/2022, 12/10/2022, Additional history exists Influenza Vaccine (#1) 2024 11/23/2023, 2022 BMI (ht and wt on same day) for age 18+ 10/13/2025 10/13/2024, 11/23/2023, 05/25/2023, Additional history exists Pap test for age [...] C screening for age 18-79 Completed 11/23/2023 Pneumococcal series for age 6-49 Aged Out No longer eligible b ased on patient's age to complete this topic Procedures Procedure Name Priority Date/Time Associated Diagnosis Comments EKG 12 LEAD Routine 10/13/2024 12:00 AM CDT Palpitations ECHO STRESS EXERCISE WO CONTRAST W COLOR W LTD DOPPLER Routine 08/15/2024 8:35 AM CDT Chest pressure CBC WITH AUTO DIFFERENTIAL Routine 08/03/2024 9:12 AM CDT Chest pressure COMP METABOLIC PANEL Routine 08/03/2024 9:12 AM CDT Chest pressure TSH WITH REFLEX Routine 08/03/2024 9:12 AM CDT Chest pressure LYME SCREEN W/REFLEX Routine 08/03/2024 9:12 AM CDT Chest pressure LIPID PANEL W REFLEX MEASURED LDL Routine 08/03/2024 9:12 AM CDT Chest pressure HEMOGLOBIN A1C Routine 08/03/2024 9:12 AM CDT Chest pressure HIV 1/2 ANTIGEN/ANTIBODY FOURTH GENERATION W/RFL ([facility]) Routine 11/23/2023 4:09 PM CDT Encounter for screening for HIV ANTI HCV Routine 11/23/2023 4:09 PM CDT Need for hepatitis C screening test from Last 3 Months or Most Recently Relevant to Health Maintenance Results * EKG 12 LEAD (10/13/2024 12:00 AM CDT) us Shaheen Kennedy MD EKG ORD Final Re sult * ECHO STRESS EXERCISE WO CONTRAST W COLOR W LTD DOPPLER (08/15/2024 8:35 AM CDT) EJECTION FRACTION 55-60% PROSOLV Anatomical Region Laterality Modality Ultrasound, Nucl ear Medicine 08/15/2024 7:48 AM CDT Narrative 08/15/2024 9:29 AM CDT [address], [place] [address] Main: Exercise Stress Echo Report GLENN MOFFETT Nixon ID: [id number] Age: 34 : 1990 Legal Practice Manager: GORDON Exam Date: 08/15/2024 07:48 Gender: F RN/Ex. Spinning Bath Patroller: YADIRA Height: 67 in BSA: 2.12 m Monitoring Provider: RUPA RIVAS Weight: 224 lbs BMI: 35.1 kg/m Ordering Provider: LINNETTE ELIZABETH Location: [facility] Procedure Components: Stress Echo, Color Doppler, Limited Spectral Doppler Indications: Chest pressure Technical Quality: Fair Contrast: None FINAL CONCLUSIONS Exercise produced expected fatigue. Exercise did not seem to reproduce presenting chest pain symptoms. Good exercise tolerance, achieving 12.1 METs and 90.3% of max predicted heart rate. No definite ECG, echocardiographic evidence of myocardial ischemia at the HR achieved. There were no prior studies available for comparison. PATIENT HISTORY No known CAD Risk Factors: Family history, Obesity Cardiac History: None Presenting Symptoms: Atypical chest pain, Fatigue, Dyspnea at rest Cardiac Meds: None Meds past 24 hrs: None STRESS TEST SUMMARY Protocol: David Exercise Duration (min:sec): 10:35 METs: 12.1 Angina Score: 0: no angina Max ST Deviation (mm): 0 Murray TM Score: 10.6 Resting HR: 89 Resting BP: 120 / 74 Position: Sitting 119 % Predicted Exercise Capacity Resting HR: 91 Resting BP: 118 / 70 Position: Standing Peak HR: 167 Peak BP: 178 / 86 % MPHR: 90 Double Product: [id number] MPHR: 185 Target HR: 157 Recovery HR: 103 Recovery BP: 128 / 80 BP Response: Normal HR Response: Normal Stress Symptoms: Exercise produced expected fatigue. Exercise did not seem to reproduce presenting chest pain symptoms. Stress Termination: Leg fatigue Meds Given: NONE ECHOCARDIOGRAPHIC FINDINGS STRESS FINDINGS: Left ventricular ejection fraction increased from 55-60% at rest to 65% with stress. No regional wall motion abnormalities with stress. Post-stress regional wall motion analysis has reduced accuracy due to suboptimal endocardial border definition. Stress Estimated EF: 65% REST FINDINGS Left Ventricle: Normal left ventricular chamber size. Normal left ventricular systolic function. Calculated left ventricular ejection fraction (modified De La Garza technique) is 60 %. No regional wall motion abnormalities. Rest Estimated EF: 55-60% Diastolic Function: Normal left ventricular diastolic function. Left Atrium: Normal left atrial size. Left atrial volume index is 22 ml/m . Aortic Valve: Aortic valve leaflet morphology was not well visualized. No aortic valve stenosis. Trivial aortic valve regurgitation. Mitral Valve: Mildly thickened mitral valve. Trivial mitral valve regurgitation. Tricuspid Valve: Trivial tricuspid valve regurgitation. Pericardium: No pericardial effusion. Aorta: Aortic sinus of Valsalva is normal in size (3.6 cm, ZScore = 1.6). Normal indexed ascending aorta dimension (3.7 cm, 1.7 cm/m ). MEASUREMENTS (Male/Female) Normal Values 2D MEASUREMENTS AND LV FUNCTION IVS Diastolic Thickness 0.8 cm < 1.1 cm / < Stroke Volume Index 45.3 ml/m LV Diastolic Diameter CAMPBELL 3.9 cm 4.2 - 5.9 / 3 LV Ejection Fraction MOD 59.8 % >= 55 % LV Diastolic Diameter Ind 1.84 cm/m LA Volume MOD BP 46.9 ml LVPW Diastolic Thickness 0.6 cm < 1.1 cm / < LA Volume Index MOD BP 22.1 ml/m 16 - 34 ml/m LV Systolic Diameter PLAX 2.4 cm RV Diastolic Basal Diamet 3.8 cm LV Systolic Diameter Inde 1.13 cm/m LV Mass 75.1 g LVOT Diameter 2.2 cm LV Mass Index 34.3 g/m LVOT Cardiac Output 9 l/min Sinuses of Valsalva Diame 3.6 cm LVOT Cardiac Index 4.03 l/min Ascending Aorta Diameter( 3.7 cm LVOT Stroke Volume 101 ml Ascending Aorta Index 1.74 cm/m DIASTOLOGY Mitral E Point Velocity 0.717 m/se 0.70 - 1.02 m LV E' Lateral Velocity 0.144 m/se Mitral A Point Velocity 0.399 m/se 0.06 - 1.06 m Mitral E to LV E' Lateral 4.98 Mitral E to A Ratio 1.8 1.1 - 2.1 LV E' Septal Velocity 0.115 m/se MV Deceleration Time 114 msec 167 - 231 mse Mitral E to LV E' Septal 6.23 AORTIC VALVE AV Peak Velocity 1.47 m/sec < 2.0 m/sec LVOT Velocity Time Integr 26.6 cm AV Peak Gradient 8.64 mmHg AV Area Cont Eq vti 3.43 cm AV Mean Gradient 4 mmHg AV Area Cont Eq pk 3.05 cm AV Velocity Time Integral 29.5 cm AV Dimensionless Index 0.902 LVOT Peak Velocity 1.18 m/sec MITRAL VALVE MV Pressure Half Time 33 msec MV Area PHT 6.67 cm HCM DATA LVOT YOLANDE (r) 5.57 mmHg Aortic Root ZScore: 1.60 ECG ANALYSIS Resting ECG: Sinus rhythm. Resting Arrhythmia: None Stress ECG: Stress ECG noted nonspecific ST segment change. Stress Arrhythmia: None Rupa [facility] Accredited Site (Electronically Signed) Final Date: 15 August 2024 09:28 ICD-10 Codes: R07.89 Procedure Note Rupa Rivas MBBS - 08/15/[address], [place] [address] Main: Exercise Stress Echo Report GLENN MOFFETT ID: [id number] Age: 34 : 1990 Legal Practice Manager: SHAWNAR Exam Date: 08/15/2024 07:48 Gender: F RN/Ex. Spinning Bath Patroller: GO/JEF Height: 67 in BSA: 2.12 m Monitoring Provider:RUPA RIVAS Weight: 224 lbs BMI: 35.1 kg/m Ordering Provider: DANIEL ELIZABETH Location: [facility] Procedure Components: Stress Echo, Color Doppler, Limited SpectralDoppler Indications: Chest pressure Technical Quality: Fair Contrast: None FINAL CONCLUSIONS Exercise produced expected fatigue. Exercise did not seem to reproducepresenting chest pain symptoms. Good exercise tolerance, achieving 12.1 METs and 90.3% of max predictedheart rate. No definite ECG, echocardiographic evidence of myocardial ischemia at theHR achieved. There were no prior studies available for comparison. PATIENT HISTORY No known CAD Risk Factors: Family history, Obesity Cardiac History: None Presenting Symptoms: Atypical chest pain, Fatigue, Dyspnea at rest Cardiac Meds: None Meds past 24 hrs: None STRESS TEST SUMMARY Protocol: David Exercise Duration (min:sec): 10:35 METs: 12.1 Angina Score: 0: no angina Max ST Deviation (mm): 0 Murray TM Score: 10.6 Resting HR: 89 Resting BP: 120 / 74 Position: Sitting 119 % PredictedExercise Capacity Resting HR: 91 Resting BP: 118 / 70 Position: Standing Peak HR: 167 Peak BP: 178 / 86 % MPHR: 90 Double Product: [id number] MPHR: 185Target HR: 157 Recovery HR: 103 Recovery BP: 128 / 80 BP Response: Normal HR Response: Normal Stress Symptoms: Exercise produced expected fatigue. Exercise did notseem to reproduce presenting chest pain symptoms. Stress Termination: Leg fatigue Meds Given: NONE ECHOCARDIOGRAPHIC FINDINGS STRESS FINDINGS: Left ventricular ejection fraction increased from 55-60%at rest to 65% with stress. No regional wall motion abnormalities with stress. Post-stress regional wall motion analysis hasreduced accuracy due to suboptimal endocardial border definition. Stress Estimated EF: 65% REST FINDINGS Left Ventricle: Normal left ventricular chamber size. Normal leftventricular systolic function. Calculated left ventricular ejection fraction (modified De La Garza technique) is 60 %. No regional wall motionabnormalities. Rest Estimated EF: 55-60% Diastolic Function: Normal left ventricular diastolic function. Left Atrium: Normal left atrial size. Left atrial volume index is 22ml/m . Aortic Valve: Aortic valve leaflet morphology was not well visualized. Noaortic valve stenosis. Trivial aortic valve regurgitation. Mitral Valve: Mildly thickened mitral valve. Trivial mitral valveregurgitation. Tricuspid Valve: Trivial tricuspid valve regurgitation. Pericardium: No pericardial effusion. Aorta: Aortic sinus of Valsalva is normal in size (3.6 cm, ZScore = 1.6).Normal indexed ascending aorta dimension (3.7 cm, 1.7 cm/m ). MEASUREMENTS (Male/Female) Normal Values 2D MEASUREMENTS AND LV FUNCTION IVS Diastolic Thickness 0.8 cm < 1.1 cm / < Stroke Volume Index45.3 ml/m LV Diastolic Diameter CAMPBELL 3.9 cm 4.2 - 5.9 / 3 LV EjectionFraction MOD 59.8 % >= 55 % LV Diastolic Diameter Ind 1.84 cm/m LA Volume MOD BP46.9 ml LVPW Diastolic Thickness 0.6 cm < 1.1 cm / < LA Volume Index MODBP 22.1 ml/m 16 - 34 ml/m LV Systolic Diameter PLAX 2.4 cm RV Diastolic BasalDiamet 3.8 cm LV Systolic Diameter Inde 1.13 cm/m LV Mass75.1 g LVOT Diameter 2.2 cm LV Mass Index34.3 g/m LVOT Cardiac Output 9 l/min Sinuses of ValsalvaDiame 3.6 cm LVOT Cardiac Index 4.03 l/min Ascending AortaDiameter( 3.7 cm LVOT Stroke Volume 101 ml Ascending AortaIndex 1.74 cm/m DIASTOLOGY Mitral E Point Velocity 0.717 m/se 0.70 - 1.02 m LV E' LateralVelocity 0.144 m/se Mitral A Point Velocity 0.399 m/se 0.06 - 1.06 m Mitral E to LV E'Lateral 4.98 Mitral E to A Ratio 1.8 1.1 - 2.1 LV E' SeptalVelocity 0.115 m/se MV Deceleration Time 114 msec 167 - 231 mse Mitral E to LV E'Septal 6.23 AORTIC VALVE AV Peak Velocity 1.47 m/sec < 2.0 m/sec LVOT Velocity TimeIntegr 26.6 cm AV Peak Gradient 8.64 mmHg AV Area Cont Eq vti3.43 cm AV Mean Gradient 4 mmHg AV Area Cont Eq pk3.05 cm AV Velocity Time Integral 29.5 cm AV DimensionlessIndex 0.902 LVOT Peak Velocity 1.18 m/sec MITRAL VALVE MV Pressure Half Time 33 msec MV Area PHT6.67 cm HCM DATA LVOT YOLANDE (r) 5.57 mmHg Aortic Root ZScore: 1.60 ECG ANALYSIS Resting ECG: Sinus rhythm. Resting Arrhythmia: None Stress ECG: Stress ECG noted nonspecific ST segment change. Stress Arrhythmia: None Rupa Rivas MD [facility] Accredited Site (Electronically Signed) Final Date: 15 August 2024 09:28 ICD-10 Codes: R07.89 us Linnette Elizabeth MD ECHO ORD Final R esult * HEMOGLOBIN A1C (08/03/2024 9:12 AM CDT) HEMOGLOBIN A1C 5.1 <5.7 % [facility] Comment: For the purpose of screening for the presence of diabetes: <5.7% Consistent with the absence of diabetes 5.7-6.4% Consistent with increased risk for diabetes (prediabetes) > or =6.5% Consistent with diabetes This assay result is consistent with a decreased risk of diabetes. Currently, no consensus exists regarding use of hemoglobin A1c for diagnosis of diabetes in children. According to [place] Diabetes Association (ADA) guidelines, hemoglobin A1c <7.0% represents optimal control in non- diabetic patients. Different metrics may apply to specific patient populations. Standards of Medical Care in Diabetes(ADA). Blood BLOOD SPECIMEN / Unknown 08/03/2024 9:12 AM CDT 08/03/2024 9:13 AM CDT Linnette Elizabeth MD CHEMISTRY Final R esult Performing Organization Address [facility]/ZIP Co de Phone Number [facility] [address] [place] [address], [facility] [address] [place] [address] * TSH WITH REFLEX (08/03/2024 9:12 AM CDT) TSH W/REFLEX TO FT4 1.42 mIU/L [facility] Comment: Reference Range > or = 20 Years 0.40-4.50 Ranges First trimester 0.26-2.66 Second trimester 0.55-2.73 Third trimester 0.43-2.91 Blood BLOOD SPECIMEN / Unknown 08/03/2024 9:12 AM CDT 08/03/2024 9:13 AM CDT Linnette Elizabeth MD CHEMISTRY Final R esult Performing Organization Address [facility] Co de Phone Number [facility] [address] [place] [phone], [facility] [address] [place] [address] * (ABNORMAL) LIPID PANEL W REFLEX MEASURED LDL (08/03/2024 9:12 AM CDT) CHOLESTEROL, TOTAL 166 <200 mg/dL [facility] HDL CHOLESTEROL 38(L) > OR = 50 mg/dL [facility] TRIGLYCERIDES 109 <150 mg/dL [facility] LDL-CHOLESTEROL 107(H) mg/dL (calc) [facility] Comment: Reference range: <100 Desirable range <100 mg/dL for primary prevention; <70 mg/dL for patients with CHD or diabetic patients with > or = 2 CHD risk factors. LDL-C is now calculated using the Palmira calculation, which is a validated novel method providing better accuracy than the Friedewald equation in the estimation of LDL-C. Robert JACKSON et al. MARCEL. 2013;310(19): 5579-1276 (http://education.[employer]/faq/CPK463) CHOL/HDLC RATIO 4.4 <5.0 (calc) [facility] NON HDL CHOLESTEROL 128 <130 mg/dL (calc) [facility] Comment: For patients with diabetes plus 1 major ASCVD risk factor, treating to a non-HDL-C goal of <100 mg/dL (LDL-C of <70 mg/dL) is considered a therapeutic option. Blood BLOOD SPECIMEN / Unknown 08/03/2024 9:12 AM CDT 08/03/2024 9:13 AM CDT us Linnette Elizabeth MD CHEMISTRY Final R esult [facility] [address] [place] [address], [facility] [address] [place] [address] * LYME SCREEN W/REFLEX (08/03/2024 9:12 AM CDT) Pathologist [facility] LYME AB, SCREEN < or = 0.90 index [facility], Comment: REFERENCE RANGE: < OR = 0.90 Index Index Interpretation < OR = 0.90 NEGATIVE 0.91 - 1.09 EQUIVOCAL > OR = 1.10 POSITIVE This assay measures Lyme Disease (Borrelia burgdorferi) IgG plus IgM antibodies; it does not distinguish results that are both IgG and IgM positive from results that are either IgG or IgM positive. As recommended by the Centers for Disease Control and Prevention (CDC), all samples with positive or equivocal results in this screening assay will be tested using separate supplemental Lyme IgG and IgM immunoassays. Positive or equivocal screening assay results should not be interpreted as truly positive until verified as such using the supplemental assays. Screening and/or supplemental tests for Lyme disease antibodies may be falsely negative in early stages of Lyme disease, including the period when erythema migrans is apparent. These assays may be falsely positive in patients with other spirochetal diseases (e.g., syphilis) or infectious mononucleosis. Blood BLOOD SPECIMEN / Unknown 08/03/2024 9:12 AM CDT 08/03/2024 9:13 AM CDT Linnette Elizabeth MD SEND OUTS Final R esult [facility] [address] [place] [address], [facility], [address] [place] [address] * CBC AND DIFFERENTIAL (08/03/2024 9:12 AM CDT) [facility] WHITE BLOOD CELL COUNT 6.0 3.8 - 10.8 Thousand/u L [facility] RED BLOOD CELL COUNT 4.72 3.80 - 5.10 Million/uL [facility] HEMOGLOBIN 14.8 11.7 - 15.5 g/dL [facility] HEMATOCRIT 43.8 35.0 - 45.0 % [facility] MCV 92.8 80.0 - 100.0 fL [facility] MCH 31.4 27.0 - 33.0 pg [facility] MCHC 33.8 32.0 - 36.0 g/dL [facility] Comment: For adults, a slight decrease in the calculated MCHC value (in the range of 30 to 32 g/dL) is most likely not clinically significant; however, it should be interpreted with caution in correlation with other red cell parameters and the patient's clinical condition. RDW 12.3 11.0 - 15.0 % [facility] PLATELET COUNT 246 140 - 400 Thousand/u L [facility] MPV 10.3 7.5 - 12.5 fL [facility] ABSOLUTE NEUTROPHILS 3,228 1,500 - 7,800 cells/uL [facility] ABSOLUTE LYMPHOCYTES 2,106 850 - 3,900 cells/uL [facility] ABSOLUTE MONOCYTES 450 200 - 950 cells/uL [facility] ABSOLUTE EOSINOPHILS 168 15 - 500 cells/uL [facility] ABSOLUTE BASOPHILS 48 0 - 200 cells/uL [facility] NEUTROPHILS 53.8 % [facility] LYMPHOCYTES 35.1 % [facility] MONOCYTES 7.5 % [facility] EOSINOPHILS 2.8 % [facility] BASOPHILS 0.8 % [facility] Blood BLOOD SPECIMEN / Unknown 08/03/2024 9:12 AM CDT 08/03/2024 9:13 AM CDT Linnette Elizabeth MD HEMATOLOGY Final R esult [facility] [address] [place] [address], [facility] [address] [place] [address] * (ABNORMAL) COMP METABOLIC PANEL (08/03/2024 9:12 AM CDT) GLUCOSE 112(H) 65 - 99 mg/dL [facility] Comment: Fasting reference interval For someone without known diabetes, a glucose value between 100 and 125 mg/dL is consistent with prediabetes and should be confirmed with a follow-up test. UREA NITROGEN (BUN) 11 7 - 25 mg/dL [facility] CREATININE 0.80 0.50 - 0.97 mg/dL [employer] EGFR 98 > OR = 60 mL/min/1. 73m2 [facility] BUN/CREATININE RATIO SEE NOTE: 6 (calc) [facility] Comment: Not Reported: BUN and Creatinine are within reference range. SODIUM 139 135 - 146 mmol/L [facility] POTASSIUM 4.2 3.5 - 5.3 mmol/L [facility] CHLORIDE 107 98 - 110 mmol/L [facility] CARBON DIOXIDE 24 20 - 32 mmol/L [facility] CALCIUM 9.2 8.6 - 10.2 mg/dL [facility] PROTEIN, TOTAL 6.9 6.1 - 8.1 g/dL [facility] ALBUMIN 4.3 3.6 - 5.1 g/dL [facility] GLOBULIN 2.6 1.9 - 3.7 g/dL (calc) [facility] ALBUMIN/GLOBULIN RATIO 1.7 1.0 - 2.5 (calc) [facility] BILIRUBIN, TOTAL 0.5 0.2 - 1.2 mg/dL [facility] ALKALINE PHOSPHATASE 50 31 - 125 U/L [facility] AST 39(H) 10 - 30 U/L [facility] ALT 56(H) 6 - 29 U/L [facility] Blood BLOOD SPECIMEN / Unknown 08/03/2024 9:12 AM CDT 08/03/2024 9:13 AM CDT us Linnette Elizabeth MD CHEMISTRY Final R esult [facility] [address] [place] [address], [facility] [address] [place] [address] * HIV 1/2 ANTIGEN/ANTIBODY FOURTH GENERATION W/RFL ([facility]) (11/23/2023 4:09 PM CDT) Pathologist [facility] HIV AG/AB, 4TH GEN NON-REACT SARAHI NON-REACT SARAHI [facility] Comment: HIV-1 antigen and HIV-1/HIV-2 antibodies were [...] purpose. For additional information please refer to http://WiziShop.GetMyRx/faq/PCM016 (This link is being provided for informational/ educational purposes only.) The performance of this assay has not been clinically validated in patients less than 2 years old. Blood BLOOD SPECIMEN / Unknown 11/23/2023 4:09 PM CDT 11/23/2023 4:18 PM CDT Linnette Elizabeth MD SEND OUTS Final R esult Performing Organization Address [facility] de Phone Number [employer] [facility] [address] [place] [address], [facility] [address] [place] [address] * ANTI HCV (11/23/2023 4:09 PM CDT) HEPATITIS C ANTIBODY NON-REACTI VE NON-REACT SARAHI [facility] Comment: HCV antibody was non-reactive. There is no laboratory evidence of HCV infection. In most cases, no further action is required. However, if recent HCV exposure is suspected, a test for HCV RNA (test code 69832) is suggested. For additional information please refer to http://WiziShop.AlleyWatch.Narvalous/faq/EOB63c2 (This link is being provided for informational/ educational purposes only.) Blood BLOOD SPECIMEN / Unknown 11/23/2023 4:09 PM CDT 11/23/2023 4:18 PM CDT Linnette Elizabeth MD SEND OUTS Final R esult Performing Organization Address [facility] Co de Phone Number [facility] [address] [place] [address], [facility] [address] [place] [address] from Last 3 Months or Most Recently Relevant to Health Maintenance Insurance [facility] Care Teams Machine Setter And Repairer Relationship Specialty [place] [id number] [place], [place] [phone] PCP - General Family Practice 11/23/23
[2024-10-26 23:10] VITALS: BP 142/89; PULSE 81; RESP 18; TEMP 36.6; O2SAT 98; BMI 36.0
--- NOTE | 2024-10-26 23:24 | ED.GENADULT ---
HPI - General Adult General Date Seen: 10/26/24 Chief complaint: Syncope/Fainted Stated complaint: syncope, lower abdominal pain Time Seen by Provider: 10/26/24 23:22 Source: patient Mode of arrival: ambulatory Limitations: no limitations History of Present Illness HPI narrative: Patient is a 34-year-old female presenting to the emergency department for left lower quadrant abdominal pain. She states today she was sitting on her couch and eating when she had a sudden wave of nausea and started developing left lower quadrant pain. She went to the bathroom and was feeling diaphoretic and warm. She thought she was going to vomit. When she stood up she states she passed out and hit her left forehead on the floor. Continues to have left lower quadrant abdominal pain but is much better now. She states more of a dull ache at this point. Denies ever having pain like this before. States the nausea is very minimal at this time. No previous abdominal surgeries. No history of ovarian cysts. Feels tired right now but denies any chest pain, shortness of breath, headache, weakness, numbness, diarrhea, constipation. Has not had any vaginal bleeding or discharge. Related Data Home Medications ?Medication ?Instructions ?Recorded ?Confirmed dextroamphetamine-amphetamine ER 1 cap PO DAILY 07/30/24 07/30/24 25 mg 24hr capsule,extend release Allergies Allergy/AdvReac Type Severity Reaction Status Date / Time hydrocodone AdvReac Intermediate Nausea Verified 07/30/24 18:46 nickel AdvReac Intermediate Rash Verified 07/30/24 18:46 Review of Systems Status of ROS: Reports: 10 or more systems reviewed and unremarkable except as noted in History and below [facility] Medical History No significant past medical history Surgical History No significant past surgical history Social History Smoking Status: Never smoker Second hand tobacco smoke exposure: No How often do you have a drink containing alcohol: never How often do you have six or more drinks on one occasion: Never AUDIT-C Alcohol total score: 0 Non-prescribed substance use: denies use Exam Narrative: Exam Narrative: Const: Well-nourished, Well-developed, in mild distress Eyes: PERRL, no conjunctival injection, and symmetrical lids HENT: Atraumatic external nose and ears. Moist mucous membranes. No palpable skull fractures Neck: Symmetric, trachea midline, No thyromegaly. CVS: RRR, No murmurs or gallops. Peripheral pulses 2+ and equal in all extremities RESP: Unlabored respiratory effort. Clear to auscultation bilaterally. GI: Left lower quadrant and pelvic tenderness, Nondistended, No rebound or guarding. MSK:Extremities w/o deformity, Normal Active ROM, no midline cervical tenderness. Full range of motion of her neck Skin: Warm, Dry. No rashes or lesions. Neuro: Normal Muscle tone, No focal neurological deficits. Psych: Awake, Alert, & Oriented x3. Appropriate mood and affect. Const: Vital Signs, click to edit/add: Vital Signs - 24 hr 10/26/24 23:10 Temperature 97.8 F Pulse Rate [Right Pulse Oximeter] 81 Respiratory Rate 18 Blood Pressure [Ri ght Upper Arm] 142/89 H Pulse Oximetry 98 Oxygen Delivery Me thod Room Air Course Vital Signs Vital signs: Initial Vital Signs Temperature 97.8 F 10/26/24 23:10 Temperature Source Temporal Artery Scan 10/26/24 23:10 Pulse Rate 81 10/26/24 23:10 Pulse Rhythm Regular 10/26/24 23:10 Pulse Strength 3+ Normal 10/26/24 23:10 Respiratory Rate 18 10/26/24 23:10 Blood Pressure 142/89 H 10/26/24 23:10 Blood Pressure Mean 106 H 10/26/24 23:10 Blood Pressure Position Supine 10/26/24 23:10 Pulse Oximetry 98 10/26/24 23:10 Oxygen Delivery Method Room Air 10/26/24 23:10 Vital Signs Temperature 97.8 F 10/26/24 23:10 Pulse Rate 81 10/26/24 23:10 Respiratory Rate 18 10/26/24 23:10 Blood Pressure 142/89 H 10/26/24 23:10 Pulse Oximetry 98 10/26/24 23:10 Oxygen Delivery Method Room Air 10/26/24 23:10 Temperature 97.8 F 10/26/24 23:10 Pulse Rate 81 10/26/24 23:10 Respiratory Rate 18 10/26/24 23:10 Blood Pressure 142/89 H 10/26/24 23:10 Pulse Oximetry 98 10/26/24 23:10 Oxygen Delivery Method Room Air 10/26/24 23:10 Medical Decision Making [facility] Narrative Medical decision making narrative: Patient is a 34-year-old female presenting for an episode of syncope after abdominal pain. Syncope was likely a fainting episode caused by the pain I will do an EKG for better evaluation. For abdominal pain differential includes ovarian cyst, ovarian torsion, diverticulitis, colitis. Will do an ultrasound to evaluate the ovaries and a CT scan to evaluate the abdomen. Will also order a CBC, CMP, urinalysis, urine hCG. She declines any pain or nausea medicine at this time. Per the [place]ag[place] CT head and C-spine rules CT scans are not recommended at this time. She is not having any altered mental status, is not on any blood thinners, no palpable skull fractures, it was not in a high mechanism injury, no associated vomiting Ultrasound showed a hemorrhagic cyst. This is likely the cause of her pain. Considering this I do not believe the CT is necessary I will be unnecessary radiation for her. Lab work returned showing no acute concerning abnormalities. At this time I do believe she is safe for discharge. Just pending final read of the ultrasound. Lab Data Labs: Lab Results 10/26/24 10/26/24 Range/Units 23:25 23:40 WBC 10.54 (4.50-11.00) K/uL RBC 4.30 (4.00-5.20) m/uL Hgb 13.4 (12.0-16.0) gm/dL Hct 38.6 (33.0-51.0) % MCV 90 (80-100) fL MCH 31 (26-34) pg MCHC 35 (32-36) gm/dL RDW Coeff of Arturo 11.7 (11.5-15.5) % Plt Count 224 (140-440) K/uL Neut % (Auto) 63.8 (42.0-72.0) % Lymph % (Auto) 25.8 (20-44) % [place] % (Auto) 7.6 (0.0-11.0) % Eos % (Auto) 1.8 (0.0-7.0) % Baso % (Auto) 0.4 (0.0-3.0) % Neut # (Auto) 6.73 (1.7-7.0) K/uL Lymph # (Auto) 2.72 (0.90-2.90) K/uL [place] # (Auto) 0.80 (0.00-0.90) K/UL Eos # (Auto) 0.19 (0.00-0.50) K/uL Baso # (Auto) 0.04 (0.00-0.30) K/uL Abs Immat Gran (auto) 0.06 (0.00-0.30) K/uL Imm/Tot Granulo (auto) 0.6 % Sodium 136 (135-149) mmol/L Potassium 3.8 (3.6-5.1) mmol/L Chloride 103 (96-114) mmol/L Carbon Dioxide 26 (20-32) mmol/L Anion Gap 7 (7-15) mEq/L BUN 16 (5-24) mg/dL Creatinine 0.9 (0.5-1.5) mg/dL Estimated Creat Clear 84.84 Estimated GFR 86 ml/min Glucose 105 (60-115) mg/dL Calcium 9.4 (8.4-10.6) mg/dL Total Bilirubin 0.4 (0.1-1.5) mg/dL AST 46 H (12-35) U/L ALT 30 (4-35) U/L Alkaline Phosphatase 46 (40-150) U/L Total Protein 6.9 (6.0-8.3) g/dL Albumin 4.1 (3.3-5.0) g/dL Urine Color Yellow (Yellow) Urine Appearance Clear (Clear) Urine pH 5.5 (5.0-8.5) Ur Specific [place] >= 1.030 (1.000-1.030) Urine Protein Negative (Negative) Urine Glucose (UA) Negative (Negative) Urine Ketones Trace A (Negative) Urine Blood Negative (Negative) Urine Nitrite Negative (Negative) Urine Bilirubin Negative (Negative) Urine Urobilinogen 0.2 (0.2-1.0) Ur Leukocyte Esterase Negative (Negative) Urine RBC 0-2 (0-2) Urine WBC 0-2 (0-5) Ur Squamous Epith Cells Few (None-Few) Urine Bacteria None (None) POC Troponin I 0.00 L (0.01-0.04) ng/ml ECG Data Attestation: I personally reviewed and interpreted this ECG as follows: Prior ECG tracings: available for review Interpretation: Normal sinus rhythm with rate 78 beats per minute, normal intervals, normal axis, no ST or T-wave abnormalities. Discharge Plan Discharge Clinical Impression: Hemorrhagic cyst Patient Disposition: Home, Self-Care Condition: Stable Instructions: Ovarian Cyst (ED) Additional Instructions: I believe your symptoms are from an ovarian cyst. Do recommend following up with OB. Take Tylenol and ibuprofen for pain. Return to emergency department for new or worsening symptoms Prescriptions: No Action dextroamphetamine-amphetamine 25 mg capsule,extended release 24hr 1 cap PO DAILY Follow Up/Referrals: Peggy Brunson MD [Primary Care Provider, Family Practice] Stand Alone Forms: [employer] Info Instructions
--- NOTE | 2024-10-26 23:27 | CRLHL7_ITS ---
For Patients: As a result of the Century Cures Act, medical imaging exams and procedure reports are released immediately into your electronic medical record. You may view this report before your referring provider. If you have questions, please contact your health care provider. INDICATION: Left pelvic pain TECHNIQUE: Ultrasound pelvis transabdominal and transvaginal. Endovaginal imaging was performed to better visualize the endometrium and ovaries. Real-time alcala scale sonographic images with spectral and color Doppler imaging of the ovaries were obtained. COMPARISON: None FINDINGS: Uterus: 9 x 6.3 x 4.3 cm. Normal echotexture of the myometrium noted with no masses are seen. Endometrium: 11 mm. There is a nabothian cyst present in the cervix measuring 9 mm. Right ovary: 5.3 x 3 x 2.8 cm. The right ovary is normal in appearance and echotexture. Arterial blood flow is seen within the right ovary. Left ovary: 5.8 x 4 x 2.3 cm. There is isoechoic lesion in the left ovary measuring 3.5 x 2 x 3 cm which may represent an acute corpus luteum. Arterial blood flow is seen within the left ovary. Cul-de-sac: Trace pelvic ascites is noted. IMPRESSION: 1. Unremarkable pelvic ultrasound. Dictated by Gabriel Espitia MD @ 10/27/2024 12:11:52 AM Dictated by: Gabriel Espitia MD @ 10/27/2024 00:18:14 (Electronically Signed)
--- OUTSIDE RECORDS SUMMARY | 2024-10-26 23:30 | XMS_ITS | Clinical Summary ---
Author Organization [place] Address [address] [place] [id number] Care Team Providers Care Director Of Corporate Strategy Name Role Phone Unavailable Primary Care Provider [...]
[2024-10-26 23:33] LABS: Hematocrit 38.6 % (33.0-51.0); Hemoglobin* 13.4 gm/dL (12.0-16.0); Immature Granulocytes Abs Auto 0.06 K/uL (0.00-0.30); Immature Granulocytes Pct Auto 0.6 %; Lymphocytes Absolute Auto 2.72 K/uL (0.90-2.90); Mean Corpuscular HGB Conc 35 gm/dL (32-36); Mean Corpuscular Hemoglobin 31 pg (26-34); Mean Corpuscular Volume 90 fL (80-100); RDW Coefficient of Variation % 11.7 % (11.5-15.5); Red Blood Count 4.30 m/uL (4.00-5.20); White Blood Count* 10.54 K/uL (4.50-11.00)
[2024-10-26 23:42] LABS: Troponin, Point-of-Care* 0.00 ng/ml (0.01-0.04)
[2024-10-26 23:43] LABS: Albumin* 4.1 g/dL (3.3-5.0); Chloride* 103 mmol/L (96-114); Potassium* 3.8 mmol/L (3.6-5.1); Sodium* 136 mmol/L (135-149)
[2024-10-26 23:46] LABS: Alanine Aminotransferase* 30 U/L (4-35); Alkaline Phosphatase* 46 U/L (40-150); Anion Gap 7 mEq/L (7-15); Aspartate Amino Transferase* 46 U/L (12-35); Bilirubin Total* 0.4 mg/dL (0.1-1.5); Blood Urea Nitrogen* 16 mg/dL (5-24); Calcium* 9.4 mg/dL (8.4-10.6); Carbon Dioxide* 26 mmol/L (20-32); Creatinine* 0.9 mg/dL (0.5-1.5); Est. Creatinine Clearance* 84.84; Estimated Glomerular Filt Rate 86 ml/min; Glucose* 105 mg/dL (60-115); Total Protein* 6.9 g/dL (6.0-8.3)
[2024-10-26 23:54] LABS: Appearance Urine Clear (Clear); Slide Review Reflex No
[2024-10-26 23:59] LABS: Ur HCG Qualitative* Negative (Negative)
[2024-10-27 00:19] VITALS: BP 125/80; BP 135/83; BP 137/79; PULSE 87
[2024-10-27 00:27] VITALS: PULSE 87; RESP 17; TEMP 36.8; O2SAT 97
== END 2024-10-27 00:47 | disposition home or self-care (01) ==
PROVIDERS: Emergency Provider Student in an Organized Health Care Education/Training Program; PCP Family Medicine
DX: N83.202 Unspecified ovarian cyst, left side (principal); R10.32 Left lower quadrant pain; R55 Syncope and collapse
CPT/HCPCS: 36415; 76830; 76856; 80053; 81001; 81025; 84484; 85025; 93005; 93976; 99284; 99285